=== PATIENT | male | born 1945 | race Caucasian/White ===

== ENCOUNTER → 2017-02-23 | Outpatient (CLI) | payer MEDICARE ==
[~2017-02-23] MED LIST: AMLO10 PO; ASPI81 PO; COZA100T PO; LEVA750T9 PO; LOVA1TAB47 PO; PRED10 PO; VENTAER INH
[2017-02-23 08:50] LABS: AUTOMATED NEUTROPHIL # 1.8 TH/MM3 (1.8-7.7); BASOPHIL % 0.7 % (0.0-2.0); EOSINOPHIL # 0.2 TH/MM3 (0-0.4); EOSINOPHIL % 4.6 % (0.0-4.0); HEMATOCRIT 44.4 % (39.0-51.0); HEMO FLAGS DIFF FINAL; LYMPH % 34.9 % (9.0-44.0); LYMPHOCYTE # 1.3 TH/MM3 (1.0-4.8); MEAN CELL VOLUME 88.8 FL (80.0-100.0); MEAN CORPUSCULAR HEMOGLOBIN 29.4 PG (27.0-34.0); MEAN CORPUSCULAR HGB CONC 33.1 % (32.0-36.0); NEUT % 47.8 % (16.0-70.0); PLATELET COUNT 181 TH/MM3 (150-450); RED CELL DISTRIBUTION WIDTH 14.8 % (11.6-17.2); WHITE BLOOD COUNT 3.7 TH/MM3 (4.0-11.0)
[2017-02-23 09:27] LABS: HDL CHOLESTEROL 64.9 MG/DL (40.0-60.0); LDL CHOLESTEROL 54 MG/DL (0-99)
[2017-02-23 12:32] LABS: HEMOGLOBIN A1a 1.4 %; HEMOGLOBIN A1b 0.8 %; HEMOGLOBIN Ao 82.6 %; HEMOGLOBIN F 1.2 %; HEMOGLOBIN LA1C 2.3 %; HEMOGLOBIN P3 4.3 %
== END ==
LOC: CLAB 08:30
PROVIDERS: ATTEND Internal Medicine
DX: E11.9 Type 2 diabetes mellitus without complications (principal); E78.00 Pure hypercholesterolemia, unspecified; I10 Essential (primary) hypertension
CPT/HCPCS: 36415; 80061; 83036; 84443; 85025

== ENCOUNTER 2017-03-31 16:13 | Emergency (ER) | payer MEDICARE ==
[~2017-03-31] VITALS: Ht 175.3 cm; Wt 138.0 kg
[2017-03-31 16:21] VITALS: BP 160/70; PULSE 69; RESP 16; TEMP 98.3; O2SAT 92
[2017-03-31 16:36] VITALS: PULSE 72; RESP 20; O2SAT 93
[2017-03-31] MEDS ORDERED: ASPI81CH6 CHEW (16:36)
[2017-03-31] MEDS ORDERED: HYDR25TA5 PO (16:36)
[2017-03-31] MEDS ORDERED: METO50TA PO (16:36)
[2017-03-31] MEDS ORDERED: ALEV220T14 PO (16:36)
[2017-03-31] MEDS ORDERED: POTA10CA PO (16:36)
[2017-03-31] MEDS ORDERED: LOSA100T PO (16:36)
[2017-03-31] MEDS ORDERED: FURO40TA PO (16:36)
[2017-03-31] MEDS ORDERED: AMLO10TA2 PO (16:36)
[2017-03-31] MEDS ORDERED: LOVA20TA PO (16:36)
[2017-03-31] MEDS ORDERED: FISHCAP4 PO (16:36)
[2017-03-31] MEDS ORDERED: AZIT250T3 PO (16:40)
[2017-03-31] MEDS ORDERED: ALBU6.7H INH (16:41)
[2017-03-31] MEDS ORDERED: PRED20 PO (16:41)
--- NOTE | 2017-03-31 16:43 | PD ---
HPI Chief Complaint: Cold / Flu Symptoms Time Seen by Provider: 16:29 Travel History International Travel<30 days: No Contact w/Intl Traveler<30days: No Traveled to known affect area: No History of Present Illness HPI 71-year-old male arrives to the ER as he has had coughing and congestion for 1 day. Similar though much less severe symptoms were bothersome for the past few days. He believes to have contracted it from his friend with a similar syndrome. No history of diabetes or COPD. He reports strict compliance with Lasix. He denies orthopnea and dyspnea on exertion. He has no chest pain. He does report some bilateral lower posterolateral rib pain. PFSH Past Medical History Arthritis: Yes (hand) Blood Disorders: No Cancer: No Cardiovascular Problems: Yes High Cholesterol: Yes Diminished Hearing: No Endocrine: No GERD: Yes Genitourinary: No Hypertension: Yes Immune Disorder: No Musculoskeletal: Yes Neurologic: No Psychiatric: No Respiratory: Yes Immunizations Current: Yes Sleep Apnea: Yes (CPAP AT NIGHT) Past Surgical History Genitourinary Surgery: Yes (vasectomy) Oral Surgery: Yes (tonsillectomy) Tonsillectomy: Yes Family History Family Hypercholesterolemia: Yes Social History Alcohol Use: No Tobacco Use: No Substance Use: No Allergies-Medications (Allergen,Severity, Reaction): Coded Allergies: No Known Allergies (Verified Adverse Reaction, Unknown, 03/31/17) Reported Meds & Prescriptions Reported Meds & Active Scripts Active Reported Cozaar (Losartan Potassium) 100 Mg Tab 100 Mg PO DAILY Ventolin Hfa (Albuterol Sulfate) 18 Gm Aero 2 Puff INH QID * SHAKE WELL BEFORE USE * Deltasone (Prednisone) 10 Mg Tab 10 Mg PO DIRECTED two tablets daily for 3 days then, 1 tablet daily for 3 days. Norvasc (Amlodipine Besylate) 10 Mg Tab 10 Mg PO DAILY Levaquin (Levofloxacin) 750 Mg Tab 750 Mg PO DAILY Aspirin 81 Mg Tab 81 Mg PO DAILY Mevacor (Lovastatin) 20 Mg Tab 20 Mg PO DAILY Review of Systems Except as stated in HPI: all other systems reviewed are Neg General / Constitutional: No: Fever Respiratory: Positive: Cough, Shortness of Breath, Wheezing Physical Exam Narrative GENERAL: 71 M, WNWD, speaking full sentences SKIN: Warm and dry. HEAD: Atraumatic. Normocephalic. EYES: Pupils equal and round. No scleral icterus. No injection or drainage. ENT: No nasal bleeding or discharge. Mucous membranes pink and moist. NECK: Trachea midline. No JVD. CARDIOVASCULAR: Regular rate and rhythm. RESPIRATORY: Course breath sounds at the bases. No tachypnea/dyspnea. GASTROINTESTINAL: Abdomen soft, non-tender, nondistended. Hepatic and splenic margins not palpable. MUSCULOSKELETAL: Extremities without clubbing or cyanosis. No obvious deformities. 2+ Pitting edema bilaterally. NEUROLOGICAL: Awake and alert. No obvious cranial nerve deficits. Motor grossly within normal limits. Five out of 5 muscle strength in the arms and legs. Normal speech. PSYCHIATRIC: Appropriate mood and affect; insight and judgment normal. Data Data Last Documented VS Vital Signs Date Time Temp Pulse Resp B/P (MAP) Pulse Ox O2 Delivery O2 Flow Rate FiO2 03/31/17 16:21 98.3 69 16 160/70 (100) 92 VS reviewed MDM Medical Decision Making Medical Screen Exam Complete: Yes Emergency Medical Condition: Yes Medical Record Reviewed: Yes Differential Diagnosis bronchitis, pna, ptx, chf Narrative Course pt well appearing vs normal pt states typically azithromycin helps azithromycin script follow up with primary, dr newton on sunday if no significant improvement Diagnosis Primary Impression: Bronchitis Referrals: Lane Newton MD 2 days Additional Instructions: You have a choice when it comes to health care, and we are glad that you chose [facility]. Hopefully, we have met your expectations on today's visit. You are welcome to return to [facility] at any time, as we are committed to meeting the health care needs of our community. Med/Other Pt SpecificInfo: Prescription(s) given Scripts Prednisone (Prednisone) 20 Mg Tab 40 MG PO DAILY for 4 Days, #8 TAB 0 Refills Take 40 mg (2 tablets) daily for 5 days Prov: Inder Ramirez MD 03/31/17 Albuterol 6.7 GM Inh (Proventil Hfa 6.7 GM Inh) 90 Mcg/Act Aer 2 PUFF INH Q4-6H Y for SHORTNESS OF BREATH, #1 INHALER 0 Refills Prov: Inder Ramirez MD 03/31/17 Azithromycin (Azithromycin) 250 Mg Tab 250 MG PO DIRECTED for Infection, #6 TAB 0 Refills Take 2 tabs (500 mg) on day 1 then 1 tab daily x 4 days. Prov: Inder Ramirez MD 03/31/17 Disposition: 01 DISCHARGE HOME Condition: Stable Inder Ramirez MD Mar 31, 2017 16:43
== END 2017-03-31 17:02 | disposition home or self-care (01) ==
LOC: PHED 16:13
DX: J40 Bronchitis, not specified as acute or chronic (principal); I10 Essential (primary) hypertension; E78.00 Pure hypercholesterolemia, unspecified
CPT/HCPCS: 99284

== ENCOUNTER → 2017-11-16 | Outpatient (CLI) | payer MEDICARE ==
[~2017-11-16] MED LIST changes: +ALBU6.7H INH; +ALEV220T14 PO; -AMLO10 PO; +AMLO10TA2 PO; -ASPI81 PO; +ASPI81CH6 CHEW; +AZIT250T3 PO; -COZA100T PO; +FISHCAP4 PO; +FURO40TA PO; +HYDR25TA5 PO; -LEVA750T9 PO; +LOSA100T PO; -LOVA1TAB47 PO; +LOVA20TA PO; +METO50TA PO; +POTA10CA PO; -PRED10 PO; +PRED20 PO; -VENTAER INH
[2017-11-16 07:23] LABS: AUTOMATED NEUTROPHIL # 1.3 TH/MM3 (1.8-7.7); BASOPHIL % 0.6 % (0.0-2.0); EOSINOPHIL # 0.2 TH/MM3 (0-0.4); EOSINOPHIL % 4.5 % (0.0-4.0); HEMATOCRIT 44.4 % (39.0-51.0); HEMOGLOBIN 14.8 GM/DL (13.0-17.0); LYMPH % 42.7 % (9.0-44.0); LYMPHOCYTE # 1.5 TH/MM3 (1.0-4.8); MEAN CELL VOLUME 88.8 FL (80.0-100.0); MEAN CORPUSCULAR HEMOGLOBIN 29.7 PG (27.0-34.0); MEAN CORPUSCULAR HGB CONC 33.4 % (32.0-36.0); MEAN PLATELET VOLUME 7.8 FL (7.0-11.0); MONO % 13.8 % (0.0-8.0); MONOCYTE # 0.5 TH/MM3 (0-0.9); NEUT % 38.4 % (16.0-70.0); PLATELET COUNT 163 TH/MM3 (150-450); RED CELL DISTRIBUTION WIDTH 14.6 % (11.6-17.2); WHITE BLOOD COUNT 3.5 TH/MM3 (4.0-11.0)
[2017-11-16 07:42] LABS: BACTERIA, URINE RARE /hpf; BILIRUBIN, URINE NEG (NEG); BLOOD, URINE MOD (NEG); GLUCOSE,URINE NEG (NEG); KETONE, URINE NEG (NEG); NITRITE,URINE NEG (NEG); SQUAMOUS EPITHELIAL CELL URINE 1 /hpf (0-5); URINE COLOR YELLOW (YELLW/STRAW); URINE LEUKOCYTE ESTERASE NEG (NEG)
[2017-11-16 07:43] LABS: ALT (GPT) 31 U/L (12-78); AST (GOT) 22 U/L (15-37); BICARBONATE 28.4 MEQ/L (21.0-32.0); BLOOD UREA NITROGEN 17 MG/DL (7-18); CALCIUM 8.6 MG/DL (8.5-10.1); CHLORIDE 105 MEQ/L (98-107); CHOLESTEROL 151 MG/DL (120-200); CREATININE 0.93 MG/DL (0.60-1.30); GLOMERULAR FILTRATION RATE 80 ML/MIN (>89); GLUCOSE,FASTING 90 MG/DL (74-99); SODIUM (NA) 143 MEQ/L (136-145)
[2017-11-16 07:53] LABS: ALKALINE PHOSPHATASE 38 U/L (45-117); HDL CHOLESTEROL 55.9 MG/DL (40.0-60.0); LDL CHOLESTEROL 73 MG/DL (0-99); TOTAL BILIRUBIN ADULT 0.4 MG/DL (0.2-1.0); TOTAL PROTEIN 7.3 GM/DL (6.4-8.2); TRIGLYCERIDES 110 MG/DL (42-150)
== END ==
LOC: CLAB 06:15
PROVIDERS: ATTEND Internal Medicine
DX: E78.00 Pure hypercholesterolemia, unspecified (principal); I10 Essential (primary) hypertension; E11.9 Type 2 diabetes mellitus without complications; Z12.5 Encounter for screening for malignant neoplasm of prostate
CPT/HCPCS: 36415; 80053; 80061; 81001; 82043; 83036; 84153; 84443; 85025